=== PATIENT | female | born 1945 | race Caucasian/White ===

== ENCOUNTER 2021-02-21 16:03 | Inpatient (IN) | payer MEDICARE, OTHER ==
[~2021-02-21] VITALS: Ht 152.4 cm; Wt 49.9 kg
[2021-02-21] MEDS ORDERED: DIGOXIN125 MCG PO (23:01)
[2021-02-21] MEDS ORDERED: FLONASE 0.05% N16 GM (23:02)
[2021-02-21] MEDS ORDERED: ADVAIR 500-501 EACH INH (23:02)
[2021-02-21] MEDS ORDERED: METOPROLOL SUCC50 MG PO (23:11)
[2021-02-21] MEDS ORDERED: INCRUSE ELLI62.5 MCG INH (23:11)
[2021-02-21] MEDS ORDERED: MONTELUKAST SOD10 MG PO (23:17)
[2021-02-21] MEDS ORDERED: POTASSIUM CHLO20 ME2 PO (23:17)
[2021-02-21] MEDS ORDERED: CRESTOR 10 MG T10 MG PO (23:18)
[2021-02-21] MEDS ORDERED: STOOL SOFTENER100 MG PO (23:19)
[2021-02-21] MEDS ORDERED: THEOPHYLLINE400 MG PO (23:19)
[2021-02-21] MEDS ORDERED: ELIQUIS5 MG PO (23:21)
[2021-02-21] MEDS ORDERED: FUROSEMIDE40 MG PO (23:21)
[2021-02-21] MEDS ORDERED: COZAAR 50MG TAB50 MG PO (23:21)
[2021-02-21] MEDS ORDERED: FEROSUL325 MG PO (23:22)
[2021-02-21] MEDS ORDERED: LEVOTHYROXINE25 MCG PO (23:22)
[2021-02-21] MEDS ORDERED: ISOSORBIDE MONO30 MG PO (23:22)
[2021-02-21] MEDS ORDERED: PROVENTIL HFA6.7 GM INH (23:23)
[2021-02-21] MEDS ORDERED: IPRAT-ALBUT 0.5-3 ML INH (23:25)
[2021-02-22 09:27] LABS: HEMOGLOBIN 9.4 gm/dl (12.3-15.3); RED BLOOD COUNT 2.99 M/UL (4.00-5.10)
== END 2021-02-22 17:12 | disposition home or self-care (01) | DRG 563 ==
LOC: M/S 16:03
PROVIDERS: Internal Medicine; Orthopaedic Surgery; ADMIT Internal Medicine
PROC: 2W38X1Z Immobilization of Right Upper Extremity using Splint (ICD-10-PCS; 2021-02-22)
PROC: 0PSFXZZ Reposition Right Humeral Shaft, External Approach (ICD-10-PCS; principal; 2021-02-22 10:46)
DX: S42.251A Displaced fracture of greater tuberosity of right humerus, initial encounter for closed fracture (principal); Z20.822 Contact with and (suspected) exposure to COVID-19; J96.11 Chronic respiratory failure with hypoxia; I48.20 Chronic atrial fibrillation, unspecified; J98.11 Atelectasis; I50.32 Chronic diastolic (congestive) heart failure; W17.89XA Other fall from one level to another, initial encounter; E78.5 Hyperlipidemia, unspecified; J44.9 Chronic obstructive pulmonary disease, unspecified; I11.0 Hypertensive heart disease with heart failure; E03.9 Hypothyroidism, unspecified; Z79.01 Long term (current) use of anticoagulants; Z99.81 Dependence on supplemental oxygen; Z87.81 Personal history of (healed) traumatic fracture; Z82.49 Family history of ischemic heart disease and other diseases of the circulatory system; Z87.891 Personal history of nicotine dependence; Y92.009 Unspecified place in unspecified non-institutional (private) residence as the place of occurrence of the external cause
CPT/HCPCS: 71045; 73030; 76000; 80048; 85025; 93005; 94640; 94664; 94760; J1100; J2001; J2270; J2405; J2704; J3010; J7030; J7040

== ENCOUNTER 2021-03-16 12:08 | Inpatient (IN) | payer MEDICARE, OTHER ==
[~2021-03-16] VITALS: Ht 162.6 cm; Wt 46.3 kg
[~2021-03-16 12:08] MED LIST: ADVAIR 500-501 EACH INH; COZAAR 50MG TAB50 MG PO; CRESTOR 10 MG T10 MG PO; DIGOXIN125 MCG PO; ELIQUIS5 MG PO; FEROSUL325 MG PO; FLONASE 0.05% N16 GM; FUROSEMIDE40 MG PO; INCRUSE ELLI62.5 MCG INH; IPRAT-ALBUT 0.5-3 ML INH; ISOSORBIDE MONO30 MG PO; LEVOTHYROXINE25 MCG PO; METOPROLOL SUCC50 MG PO; MONTELUKAST SOD10 MG PO; POTASSIUM CHLO20 ME2 PO; PROVENTIL HFA6.7 GM INH; STOOL SOFTENER100 MG PO; THEOPHYLLINE400 MG PO
[2021-03-16 13:41] LABS: HEMOGLOBIN 11.6 gm/dl (12.3-15.3); RED BLOOD COUNT 3.55 M/UL (4.00-5.10); WHITE BLOOD COUNT 18.3 K/UL (4.5-11.0)
[2021-03-16] MEDS ORDERED: HYDROCODON-ACE1 EAC4 PO (17:31)
[2021-03-17 09:05] LABS: WHITE BLOOD COUNT 15.1 K/UL (4.5-11.0)
[2021-03-17 09:06] LABS: HEMOGLOBIN 9.3 gm/dl (12.3-15.3); RED BLOOD COUNT 2.99 M/UL (4.00-5.10)
[2021-03-18 03:13] LABS: HEMOGLOBIN 8.2 gm/dl (12.3-15.3)
[2021-03-18 03:25] LABS: RED BLOOD COUNT 2.63 M/UL (4.00-5.10); WHITE BLOOD COUNT 7.2 K/UL (4.5-11.0)
[2021-03-18] MEDS ORDERED: POTASSIUM CHLO10 MEQ PO (09:27)
[2021-03-18] MEDS ORDERED: KEFLEX CAP 250250 MG PO (09:27)
[2021-03-18] MEDS ORDERED: LASIX 40 MG TAB40 MG PO (09:27)
== END 2021-03-18 12:14 | disposition home health service (06) | DRG 872 ==
LOC: ER1 12:08 → PROG CARE 16:57 → CDU 16:57 → PROG CARE 18:59
PROVIDERS: Internal Medicine; Physician Assistant Medical; ADMIT Internal Medicine
DX: A41.9 Sepsis, unspecified organism (principal); J96.11 Chronic respiratory failure with hypoxia; I50.32 Chronic diastolic (congestive) heart failure; L03.115 Cellulitis of right lower limb; L03.116 Cellulitis of left lower limb; E87.2 Acidosis; N17.9 Acute kidney failure, unspecified; I48.20 Chronic atrial fibrillation, unspecified; Z20.822 Contact with and (suspected) exposure to COVID-19; E03.9 Hypothyroidism, unspecified; J44.9 Chronic obstructive pulmonary disease, unspecified; I11.0 Hypertensive heart disease with heart failure; E87.5 Hyperkalemia; I48.0 Paroxysmal atrial fibrillation; N28.1 Cyst of kidney, acquired; I87.2 Venous insufficiency (chronic) (peripheral); D53.9 Nutritional anemia, unspecified; R65.20 Severe sepsis without septic shock; E78.5 Hyperlipidemia, unspecified; M24.411 Recurrent dislocation, right shoulder; Z79.01 Long term (current) use of anticoagulants; Z98.890 Other specified postprocedural states; S42.201S Unspecified fracture of upper end of right humerus, sequela; Z79.899 Other long term (current) drug therapy; Z79.52 Long term (current) use of systemic steroids; Z87.891 Personal history of nicotine dependence; Z82.49 Family history of ischemic heart disease and other diseases of the circulatory system
CPT/HCPCS: 36415; 71045; 80048; 80053; 80202; 82550; 82553; 82607; 82728; 82746; 83540; 83550; 83605; 83735; 83874; 83880; 84100; 84484; 85025; 85027; 86140; 87040; 94640; 94664; 94760; 96374; 97161; 97166; 97530; 97535; 99284; J0610; J0692; J3370; J7030; J7070; P9047; U0002

== ENCOUNTER 2021-04-19 11:25 | Emergency (ER) | payer MEDICARE, OTHER ==
[~2021-04-19] VITALS: Ht 162.6 cm; Wt 39.9 kg
[~2021-04-19 11:25] MED LIST changes: +HYDROCODON-ACE1 EAC4 PO; +KEFLEX CAP 250250 MG PO; +LASIX 40 MG TAB40 MG PO; +POTASSIUM CHLO10 MEQ PO
[2021-04-19 12:11] LABS: HEMOGLOBIN 11.4 gm/dl (12.3-15.3); RED BLOOD COUNT 3.6 M/UL (4.00-5.10); WHITE BLOOD COUNT 15.8 K/UL (4.5-11.0)
[2021-04-19 19:01] LABS: HEMOGLOBIN 9.7 gm/dl (12.3-15.3)
== END 2021-04-20 21:50 | disposition expired ==
LOC: ER1 11:25
PROVIDERS: Internal Medicine; Internal Medicine Nephrology; Student in an Organized Health Care Education/Training Program
DX: U07.1 COVID-19 (principal); K92.2 Gastrointestinal hemorrhage, unspecified; I10 Essential (primary) hypertension; E78.5 Hyperlipidemia, unspecified; M62.82 Rhabdomyolysis; N17.9 Acute kidney failure, unspecified; I48.91 Unspecified atrial fibrillation
CPT/HCPCS: 36430; 36556; 36600; 70450; 71045; 80048; 80053; 80076; 80162; 80307; 81001; 82009; 82140; 82272; 82550; 82553; 82570; 82693; 82803; 83605; 84133; 84156; 84300; 84439; 84443; 84484; 85014; 85018; 85025; 85379; 86850; 86900; 86901; 86920; 87040; 87081; 87086; 89050; 93005; 94664; 96365; 96366; 96367; 96368; 96372; 96375; 96376; 99285; C1751; C9113; J0360; J1630; J2020; J2270; J2543; J7030; J7050; J7070; P9016; P9047; U0002